=== PATIENT | male | born 1985 | race Caucasian/White ===

== ENCOUNTER 2018-11-05 18:21 | Emergency (ER) | payer SELFPAY ==
--- NOTE | 2018-11-05 18:49 | RAD ---
FEXAM: Right elbow radiographs 4 views PROVIDED CLINICAL HISTORY: Pain FINDINGS: There is no evidence for fracture or other acute osseous abnormality. Alignment appears anatomic. Verito nt spaces appear preserved. IMPRESSION: No evidence for an acute osseous abnormality. If there is persistent clinical concern, conservative m anagement and follow-up imaging advised.
== END 2018-11-05 19:10 | disposition home or self-care (01) ==
LOC: MADERS 18:21
DX: M70.21 Olecranon bursitis, right elbow (principal)

== ENCOUNTER 2018-11-27 15:03 | Emergency (ER) | payer SELFPAY | END 2018-11-27 15:51 | disposition home or self-care (01) | LOC: MADERS 15:03 | DX: R19.7 Diarrhea, unspecified (principal) | CPT/HCPCS: 99283 ==